=== PATIENT | female | born 1965 | race Caucasian/White ===

== ENCOUNTER 2017-11-23 09:25 | Emergency (ER) | payer OTHER ==
[~2017-11-23] VITALS: Ht 157.5 cm; Wt 111.2 kg
[~2017-11-23 09:25] MED LIST: DOCU-299 PO; LISI-420 PO; NITR0.4T2 SL; ORE25 PO
[2017-11-23 09:35] VITALS: BP 181/95
--- NOTE | 2017-11-23 09:42 | NUR ---
Patient ambulated to bed 12 at this time.
[2017-11-23] MEDS ORDERED: DEXAMETHASONE 10 MG/ML VIAL IM ONE (09:50)
[2017-11-23] MEDS ORDERED: diphenhydrAMINE 50 MG CAP PO ONE (09:50)
[2017-11-23] MEDS ORDERED: FAMOTIDINE 20 MG TAB PO ONE (09:50)
--- NOTE | 2017-11-23 10:02 | NUR ---
PATIENT PRESENTS TO ED WITH RASH THROUGH OUT BODY AND PRURITUS . PT STATES . DENIES N/V/D; SKIN IS PINK/WARM/DRY; AAOX4 WITH EVEN AND STEADY GAIT; LUNGS CLEAR BL; HR EVEN AND REGULAR; PT DENIES ANY FEVER, CP, SOB, OR COUGH AT THIS TIME; PATIENT STATES PAIN OF 0/10 AT THIS TIME; VSS; PATIENT POSITIONED FOR COMFORT; HOB ELEVATED; BEDRAILS UP X2; BED DOWN. ER MD MADE AWARE OF PT STATUS.
[2017-11-23 10:48] VITALS: BP 96/95
--- NOTE | 2017-11-23 10:48 | NUR ---
Patient discharged with v/s stable. Written and verbal after care instructions given and explained. Patient alert, oriented and verbalized understanding of instructions. Ambulatory with steady gait. All questions addressed prior to discharge. ID band removed. Patient advised to follow up with PMD. Rx of LISINOPRIL,MEDROL DOSEPAK,BENADRYL AND HYDROCHLOROTHIAZIDE given. Patient educated on indication of medication including possible reaction and side effects. Opportunity to ask questions provided and answered.
== END 2017-11-23 10:48 | disposition home or self-care (01) ==
LOC: MED 09:25
DX: L50.9 Urticaria, unspecified (principal); I10 Essential (primary) hypertension; Z79.899 Other long term (current) drug therapy
CPT/HCPCS: 96372; 99283; J1100; Q0163